=== PATIENT | female | born 2000 | race American Indian/Alaskan Native ===

== ENCOUNTER 2020-10-29 14:42 | Emergency (ER) | payer MEDICAID ==
[2020-10-29 14:53] VITALS: BP 143/68
--- NOTE | 2020-10-29 15:19 | Event Note ---
ED Screening Note Date of service: 10/29/20 Time: 15:18 ED Screening Note: 20-year-old -[place] female presents to the emergency room complaining of lower back pain and lower abdominal pain and vaginal bleeding that started today. Patient states that her period is 9 days early. This initial assessment/diagnostic orders/clinical plan/treatment(s) is/are subject to change based on patients health status, clinical progression and re- assessment by fellow clinical providers in the ED. Further treatment and workup at subsequent clinical providers discretion. Patient/guardian urged not to elope from the ED as their condition may be serious if not clinically assessed and managed. Initial orders include:
[2020-10-29 16:10] LABS: HCG Qualitative,Urine Negative (Negative)
[2020-10-29 16:13] LABS: Bilirubin,Urine NEG (Negative); Blood,Urine LG (Negative); Color,Urine Yellow (Yellow); Mucus,Urine FEW /HPF; Protein,Urine <15 mg/dL mg/dL (Negative); Urobilinogen,Urine < 2.0 mg/dL (<2.0)
--- NOTE | 2020-10-29 16:21 | Emergency Department Report ---
ED Female HPI - General Chief complaint: Vaginal Bleeding Stated complaint: VAG BLEED/BACK/HEAD PAIN Source: patient Mode of arrival: Ambulatory Limitations: No Limitations - History of Present Illness Initial comments: 20-year-old -[place] female presents to the emergency room complaining of lower back pain and lower abdominal pain and vaginal bleeding that started today. Patient states that her period is 9 days early. Denies any nausea no vomiting no vaginal discharge. MD Complaint: pelvic pain -: This morning Location: suprapubic Radiation: other (Back) Severity: moderate Severity scale (0 -10): 6 Quality: cramping, sharp Consistency: intermittent Improves with: none Worsens with: urination Are you Now?: No Last Menstrual Period: 10/09/20 EDC: 07/16/21 Associated Symptoms: denies: vaginal discharge, vaginal bleeding, nausea/vomiting, fever/chills, loss of appetite - Related Data Sexually active: Yes Previous Rx's Medication Instructions Recorded Last Taken Type Nitrofurantoin [place]/M-Cryst 100 mg PO Q12HR 10 Days #20 capsule 10/29/20 Unknown Rx [Macrobid CAP] Allergies Allergy/AdvReac Type Severity Reaction Status Date / Time No Known Allergies Allergy Verified 10/29/20 14:53 ED Review of Systems ROS: Stated complaint: VAG BLEED/BACK/HEAD PAIN Other details as noted in HPI Comment: All other systems reviewed and negative ED Past Medical Hx - Past Medical History Additional medical history: anemic - Surgical History Past Surgical History?: No - Social History Smoking Status: Current Every Day Smoker Substance Use Type: None - Medications Home Medications: Home Medications Medication Instructions Recorded Confirmed Last Taken Type Nitrofurantoin Presid[place]/M-Cryst 100 mg PO Q12HR 10 Days #20 capsule 10/29/20 Unknown Rx [Macrobid CAP] ED Physical Exam - General Limitations: No Limitations General appearance: alert, in no apparent distress - Head Head exam: Present: atraumatic, normocephalic - Eye Eye exam: Present: normal appearance - ENT ENT exam: Present: mucous membranes moist - Neck Neck exam: Present: normal inspection - Respiratory Respiratory exam: Present: normal lung sounds bilaterally. Absent: respiratory distress - Cardiovascular Cardiovascular Exam: Present: regular rate, normal rhythm. Absent: systolic murmur, diastolic murmur, rubs, gallop - GI/Abdominal GI/Abdominal exam: Present: soft, tenderness (Suprapubic), normal bowel sounds - Extremities Exam Extremities exam: Present: normal inspection - Back Exam Back exam: Present: normal inspection, full ROM, CVA tenderness (R), CVA tenderness (L) - Neurological Exam Neurological exam: Present: alert, oriented X3, normal gait - Psychiatric Psychiatric exam: Present: normal affect, normal mood - Skin Skin exam: Present: warm, dry, intact, normal color. Absent: rash ED Course Vital Signs 10/29/20 14:46 Temperature 98.4 F Pulse Rate 87 Respiratory 20 Rate Blood Pressure 143/68 O2 Sat by Pulse 98 Oximetry ED Medical Decision Making - Lab Data Laboratory Tests 10/29/20 Unknown Urine Color Yellow Urine Turbidity Slightly-cloudy Urine pH 6.0 Ur Specific Amelia 1.015 Urine Protein <15 mg/dl Urine Glucose (UA) Neg Urine Ketones Neg Urine Blood Lg Urine Nitrite Neg Ur Reducing Substances Not Reportable Urine Bilirubin Neg Urine Ictotest Not Reportable Urine Urobilinogen < 2.0 Ur Leukocyte Esterase Tr Urine WBC (Auto) 44.0 H Urine RBC (Auto) 4.0 U Epithel Cells (Auto) 9.0 Urine Mucus Few Urine HCG, Qual Negative - Medical Decision Making 20-year-old -[place] female presents to the emergency room complaining of lower back pain and lower abdominal pain and vaginal bleeding that started today. Patient states that her period is 9 days early. Denies any nausea no vomiting no vaginal discharge. Urinalysis is positive for urinary tract infection. Negative test. Patient be placed on Macrobid 100 mg p.o. twice daily for 10 days. Patient can take Tylenol or ibuprofen for pain management. Be sure to increase your water intake advance your diet as tolerated. Critical care attestation.: If time is entered above; I have spent that time in minutes in the direct care of this critically ill patient, excluding procedure time. ED Disposition Clinical Impression: UTI (urinary tract infection) Disposition: -01 TO HOME OR SELFCARE Is pt being admited?: No Does the pt Need Aspirin: No Condition: Stable Instructions: Urinary Tract Infection, Adult, [id number] Additional Instructions: Urinalysis is positive for urinary tract infection. Complete antibiotics as prescribed. Negative test. Increase your water intake advance your diet as tolerated. Follow-up with your primary care provider. Prescriptions: Nitrofurantoin Presid[place]/M-Cryst [Macrobid CAP] 100 mg PO Q12HR 10 Days #20 capsule Referrals: PRIMARY CARE, [Primary Care Provider] - 3-5 Days Forms: Work/School Release Form(ED)
== END 2020-10-29 16:32 | disposition home or self-care (01) ==
LOC: ED 14:42
DX: N39.0 Urinary tract infection, site not specified (principal); F17.200 Nicotine dependence, unspecified, uncomplicated; Z79.899 Other long term (current) drug therapy
CPT/HCPCS: 81001; 81025; 87086